=== PATIENT | female | born 1960 | race Native Hawaiian/Other Pacific Islander ===

== ENCOUNTER 2017-12-20 11:29 | Emergency (ER) | payer OTHER ==
[~2017-12-20] VITALS: Ht 167.6 cm; Wt 56.2 kg
[2017-12-20 11:29] VITALS: TEMP 97.9
[~2017-12-20 11:29] MED LIST: BUSPIRONE10 MG PO; CITALOPRAM HYDR10 MG PO; HYDROXYZ HCL50 MG PO; KRATOM
[2017-12-20 12:58] LABS: PLATELET COUNT 238 K/uL (152-353)
[2017-12-20 13:11] LABS: POTASSIUM 3.9 mmol/L (3.6-5.2); SODIUM 141 mmol/L (136-145)
[2017-12-20 15:01] VITALS: BP 157/98
== END 2017-12-20 15:03 | disposition home or self-care (01) ==
LOC: ED 11:29
PROVIDERS: Family Medicine
DX: N39.0 Urinary tract infection, site not specified (principal); M54.5 Low back pain; R00.0 Tachycardia, unspecified
CPT/HCPCS: 36415; 80053; 81000; 84484; 85027; 87077; 87086; 87088; 87186; 93005; 96372; 99283; J1885

== ENCOUNTER 2018-01-12 17:47 | Emergency (ER) | payer OTHER ==
[~2018-01-12] VITALS: Ht 167.6 cm; Wt 56.2 kg
[2018-01-12 18:03] VITALS: TEMP 99.2
[2018-01-12 20:12] VITALS: BP 138/89
== END 2018-01-12 20:12 | disposition home or self-care (01) ==
LOC: ED 17:47
DX: J32.8 Other chronic sinusitis (principal); R10.84 Generalized abdominal pain; N28.1 Cyst of kidney, acquired
CPT/HCPCS: 74022; 81000; 99283